=== PATIENT | female | born 1955 | race Hispanic/Latino ===

== ENCOUNTER 2020-09-23 06:20 | Day surgery (SDC) | payer MEDICARE ==
[~2020-09-23] VITALS: Ht 156.2 cm; Wt 80.7 kg
[~2020-09-23 06:20] MED LIST: CALC600T15 PO; ERGO500014 PO; LORA10TA60 PO; PANT40TA54 PO; SODIUM CHLORIDE 0.9% 1000ML 1,000 ML IV ONE
[2020-09-23 06:24] VITALS: BP 119/67
[2020-09-23] MEDS ORDERED: MIDAZOLAM HCL 1 MG/ML 2ML VIAL ONE (08:56)
[2020-09-23] MEDS ORDERED: PROPOFOL 10 MG/ML 20ML VIAL IV ONE (08:56)
[2020-09-23 09:23] VITALS: BP 99/44
[2020-09-23 09:28] VITALS: BP 115/54
[2020-09-23 09:33] VITALS: BP 103/53
[2020-09-23 09:38] VITALS: BP 98/51
[2020-09-23 10:00] VITALS: BP 96/42
[2020-09-23 15:58] LABS: AMYLASE,BODY FLUID 60 U/L; GLUCOSE,BODY FLUID 55 mg/dL (1-40)
== END 2020-09-23 10:00 | disposition home or self-care (01) ==
LOC: ENDO 06:20 → DAH 06:20 → ENDO 10:00
PROVIDERS: ATTEND Internal Medicine Gastroenterology
DX: K86.2 Cyst of pancreas (principal); Z20.822 Contact with and (suspected) exposure to COVID-19; K21.00 Gastro-esophageal reflux disease with esophagitis, without bleeding; E78.5 Hyperlipidemia, unspecified; K31.84 Gastroparesis; Z86.010 Personal history of colon polyps; Z98.890 Other specified postprocedural states; Z79.899 Other long term (current) drug therapy; Z90.710 Acquired absence of both cervix and uterus; Z90.49 Acquired absence of other specified parts of digestive tract; Z90.89 Acquired absence of other organs; Z72.89 Other problems related to lifestyle; Z87.442 Personal history of urinary calculi; Z85.118 Personal history of other malignant neoplasm of bronchus and lung
CPT/HCPCS: 36415; 43242; 82150; 82378; 82945; A4215 ×2; A4216; A4221; A4222; A4223; A4606; A4620; A4657 ×2; A4663; C9803; J2250; J2704; J7030; U0003